=== PATIENT | male | born 1950 | race African-American/Black ===

== ENCOUNTER 2019-06-16 15:52 | Emergency (ER) | payer MEDICARE, MEDICAID ==
[~2019-06-16] VITALS: Ht 172.7 cm; Wt 60.0 kg
[2019-06-16 16:06] VITALS: BP 182/88
[2019-06-16] MEDS ORDERED: IBUPROFEN 600MG TABLET PO ONE (16:45)
== END 2019-06-16 17:48 | disposition left against medical advice (07) ==
LOC: ER 15:52
DX: M54.2 Cervicalgia (principal); I12.9 Hypertensive chronic kidney disease with stage 1 through stage 4 chronic kidney disease, or unspecified chronic kidney disease; N18.9 Chronic kidney disease, unspecified; J44.9 Chronic obstructive pulmonary disease, unspecified; F17.200 Nicotine dependence, unspecified, uncomplicated; V49.3XXA Car occupant (driver) (passenger) injured in unspecified nontraffic accident, initial encounter; Y93.89 Activity, other specified; Y92.410 Unspecified street and highway as the place of occurrence of the external cause; Z88.0 Allergy status to penicillin
CPT/HCPCS: 99283